=== PATIENT | female | born 1970 | race Caucasian/White ===

== ENCOUNTER 2024-02-17 13:27 | Outpatient (CLI) | payer OTHER | END 2024-02-17 13:28 | disposition home or self-care (01) | LOC: CSHRAD 13:27 | PROVIDERS: ATTEND Student in an Organized Health Care Education/Training Program | DX: J45.909 Unspecified asthma, uncomplicated (principal); M54.6 Pain in thoracic spine; M54.50 Low back pain, unspecified; J90 Pleural effusion, not elsewhere classified; M25.78 Osteophyte, vertebrae; M47.896 Other spondylosis, lumbar region | CPT/HCPCS: 71046; 72072; 72100 ==